=== PATIENT | female | born 1990 | race Caucasian/White ===

== ENCOUNTER 2019-10-15 00:45 | Emergency (ER) | payer MEDICAID ==
--- NOTE | 2019-10-15 00:43 | EDM.PDOC ---
ED HPI GENERAL MEDICAL PROBLEM - General Stated Complaint: AMBULANCE Time Seen by Provider: 10/15/19 00:43 Source of Information: Reports: Patient, EMS, EMS Notes Reviewed, RN, RN Notes Reviewed History Limitations: Reports: Intoxication - History of Present Illness INITIAL COMMENTS - FREE TEXT/NARRATIVE: Patient presents to ER [facility] ambulance service with complaint of chest pain. Patient states the pain began suddenly this evening, rates pain 8/10, points to the left anterior chest wall when asked where pain is. Patient states the pain radiates up the neck and into the jaw and into the left shoulder. Patient states she has been drinking quite a bit of alcohol, states she is an alcoholic and currently working on this. Denies any further drug use. Patient admits to history of anxiety, and bipolar with no known medications. Patient denies any cardiac history. Onset: Today, Sudden Anterior Chest Pain Score (Numeric/FACES): 6 - Related Data Allergies Allergy/AdvReac Type Severity Reaction Status Date / Time EGGS Allergy Cannot Uncoded 10/15/19 00:53 Remember Home Meds: Home Meds . [No Known Home Meds] 10/15/19 [History] ED ROS GENERAL - Review of Systems Review Of Systems: Comprehensive ROS is negative, except as noted in HPI. ED EXAM, GENERAL - Physical Exam Exam: See Below Exam Limited By: Intoxication General Appearance: Alert, WD/WN, Anxious, Moderate Distress Eye Exam: Right Eye: Other (swelling of upper and lower lids), Bilateral Eye: Conjunctival Injection, EOMI, PERRL (3 sluggish) Ears: Normal External Exam, Hearing Grossly Normal Nose: Normal Inspection Throat/Mouth: Normal Inspection, Normal Voice, No Airway Compromise Head: Atraumatic, Normocephalic Neck: Normal Inspection, Supple, Non-Tender, Full Range of Motion Respiratory/Chest: No Respiratory Distress, Lungs Clear, Normal Breath Sounds, No Accessory Muscle Use, Chest Non-Tender Cardiovascular: Normal Peripheral Pulses, Regular Rate, Rhythm, No Edema, No Gallop, No JVD, No Murmur, No Rub Peripheral Pulses: 2+: Radial (L), Radial (R) GI/Abdominal: Normal Bowel Sounds, Soft, Non-Tender, No Organomegaly, No Distention, No Abnormal Bruit, No Mass, Pelvis Stable (Female) Exam: Deferred Rectal (Female) Exam: Deferred Back Exam: Normal Inspection, Full Range of Motion, NT Extremities: Normal Inspection, Normal Range of Motion, Non-Tender, Normal Capillary Refill, No Pedal Edema Neurological: Alert, Oriented, CN II-XII Intact, Normal Cognition, Normal Gait, Normal Reflexes, No Motor/Sensory Deficits Psychiatric: Anxious, Tearful Skin Exam: Warm, Dry, Intact, Normal Color, No Rash, Other (paint on hands and forearms bilaterally\\]) Lymphatic: No Adenopathy Course - Vital Signs Last Recorded V/S: Last Vital Signs Temp 98.9 F 10/15/19 00:45 Pulse 85 10/15/19 00:45 Resp 17 10/15/19 00:45 BP 116/82 10/15/19 00:45 Pulse Ox 100 10/15/19 00:45 - Orders/Labs/Meds Orders: Active Orders 24 hr Category Date Time Status EKG Documentation Completion [RC] STAT Care 10/15/19 00:43 Active EKG Documentation Completion [RC] STAT Care 10/15/19 04:55 Active CULTURE URINE [RM] Stat Lab 10/15/19 02:28 Received Acetaminophen [TylenoL] Med 10/15/19 05:54 Once 650 mg PO NOW ONE Labs: Laboratory Tests 10/15/19 10/15/19 10/15/19 Range/Units 00:55 00:55 02:28 WBC 11.5 H (5.0-10.0) 10^3/uL RBC 4.40 (4.2-5.4) 10^6/uL Hgb 13.7 (12.0-16.0) g/dL Hct 41.6 (37.0-47.0) % MCV 94.5 (80-100) fL MCH 31.1 (27.0-34.0) pg MCHC 32.9 L (33.0-35.0) g/dL Plt Count 331 (150-450) 10^3/uL Neut % (Auto) 57.9 (42.2-75.2) % Lymph % (Auto) 32.8 (20.5-50.1) % [place] % (Auto) 6.8 (2-8) % Eos % (Auto) 2.3 (1.0-3.0) % Baso % (Auto) 0.2 (0.0-1.0) % Sodium 145 (136-145) mmol/L Potassium 3.7 (3.5-5.1) mmol/L Chloride 109 H (98-107) mmol/L Carbon Dioxide 24 (21-32) mmol/L Anion Gap 15.7 H (7-13) mEq/L BUN 17 (7-18) mg/dL Creatinine 0.91 (0.55-1.02) mg/dL Est Cr Clr Drug Dosing 81.34 mL/min Estimated GFR (MDRD) > 60 BUN/Creatinine Ratio 18.7 (No establ ref range) Glucose 90 (74-99) mg/dL Calcium 8.1 L (8.5-10.1) mg/dL Total Bilirubin 0.2 (0.2-1.0) mg/dL AST 21 (15-37) U/L ALT 29 (14-59) U/L Alkaline Phosphatase 60 (46-116) U/L Troponin I < 0.017 (0.000-0.056) ng/mL Total Protein 7.1 (6.4-8.2) g/dL Albumin 3.9 (3.4-5.0) g/dL Globulin 3.2 Albumin/Globulin Ratio 1.2 Urine Color Yellow (YELLOW) Urine Appearance Slightly cloudy (CLEAR) Urine pH 5.5 (5.0-9.0) Ur Specific [place] >= 1.030 (1.005-1.030) Urine Protein Negative (NEGATIVE) Urine Glucose (UA) Negative (NEGATIVE) Urine Ketones Negative (NEGATIVE) Urine Occult Blood Trace-lysed H (NEGATIVE) Urine Nitrite Negative (NEGATIVE) Urine Bilirubin Negative (NEGATIVE) Urine Urobilinogen 0.2 (0.2-1.0) mg/dL Ur Leukocyte Esterase Trace H (NEGATIVE) Urine RBC 0-5 /HPF Urine WBC 10-20 H (0-5/HPF) /HPF Ur Epithelial Cells Moderate H (NOT SEEN) /HPF Amorphous Sediment Few (NOT SEEN) /HPF Urine Bacteria Few (0-FEW/HPF) /HPF Urine Mucus Rare (NOT SEEN) /LPF Urine HCG, Qual Urine Opiates Screen (NEGATIVE) Ur Oxycodone Screen (NEGATIVE) Urine Methadone Screen (NEGATIVE) Ur Barbiturates Screen (NEGATIVE) U Tricyclic Antidepress (NEGATIVE) Ur Phencyclidine Scrn (NEGATIVE) Ur Amphetamine Screen (NEGATIVE) U Methamphetamines Scrn (NEGATIVE) Urine MDMA Screen (NEGATIVE) U Benzodiazepines Scrn (NEGATIVE) Urine Cocaine Screen (NEGATIVE) U Marijuana (THC) Screen (NEGATIVE) Ethyl Alcohol 197 (0) mg/dL 10/15/19 10/15/19 10/15/19 Range/Units 02:28 02:28 05:12 WBC (5.0-10.0) 10^3/uL RBC (4.2-5.4) 10^6/uL Hgb (12.0-16.0) g/dL Hct (37.0-47.0) % MCV (80-100) fL MCH (27.0-34.0) pg MCHC (33.0-35.0) g/dL Plt Count (150-450) 10^3/uL Neut % (Auto) (42.2-75.2) % Lymph % (Auto) (20.5-50.1) % [place] % (Auto) (2-8) % Eos % (Auto) (1.0-3.0) % Baso % (Auto) (0.0-1.0) % Sodium (136-145) mmol/L Potassium (3.5-5.1) mmol/L Chloride (98-107) mmol/L Carbon Dioxide (21-32) mmol/L Anion Gap (7-13) mEq/L BUN (7-18) mg/dL Creatinine (0.55-1.02) mg/dL Est Cr Clr Drug Dosing mL/min Estimated GFR (MDRD) BUN/Creatinine Ratio (No establ ref range) Glucose (74-99) mg/dL Calcium (8.5-10.1) mg/dL Total Bilirubin (0.2-1.0) mg/dL AST (15-37) U/L ALT (14-59) U/L Alkaline Phosphatase (46-116) U/L Troponin I < 0.017 (0.000-0.056) ng/mL Total Protein (6.4-8.2) g/dL Albumin (3.4-5.0) g/dL Globulin Albumin/Globulin Ratio Urine Color (YELLOW) Urine Appearance (CLEAR) Urine pH (5.0-9.0) Ur Specific [place] (1.005-1.030) Urine Protein (NEGATIVE) Urine Glucose (UA) (NEGATIVE) Urine Ketones (NEGATIVE) Urine Occult Blood (NEGATIVE) Urine Nitrite (NEGATIVE) Urine Bilirubin (NEGATIVE) Urine Urobilinogen (0.2-1.0) mg/dL Ur Leukocyte Esterase (NEGATIVE) Urine RBC /HPF Urine WBC (0-5/HPF) /HPF Ur Epithelial Cells (NOT SEEN) /HPF Amorphous Sediment (NOT SEEN) /HPF Urine Bacteria (0-FEW/HPF) /HPF Urine Mucus (NOT SEEN) /LPF Urine HCG, Qual Negative Urine Opiates Screen Negative (NEGATIVE) Ur Oxycodone Screen Negative (NEGATIVE) Urine Methadone Screen Negative (NEGATIVE) Ur Barbiturates Screen Negative (NEGATIVE) U Tricyclic Antidepress Negative (NEGATIVE) Ur Phencyclidine Scrn Negative (NEGATIVE) Ur Amphetamine Screen Negative (NEGATIVE) U Methamphetamines Scrn Positive H (NEGATIVE) Urine MDMA Screen Negative (NEGATIVE) U Benzodiazepines Scrn Negative (NEGATIVE) Urine Cocaine Screen Negative (NEGATIVE) U Marijuana (THC) Screen Positive H (NEGATIVE) Ethyl Alcohol (0) mg/dL Meds: Medications Discontinued Medications Generic Name Dose Route Start Last Admin Trade Name Marika PRN Reason Stop Dose Admin Diphenhydramine HCl 25 mg 10/15/19 01:20 10/15/19 01:38 Benadryl IVPUSH 10/15/19 01:21 25 mg ONETIME ONE Administration Sodium Chloride 1,000 mls @ 999 mls/hr 10/15/19 00:45 10/15/19 01:12 Normal Saline IV 10/15/19 01:45 999 mls/hr .BOLUS ONE Administration Sodium Chloride 1,000 mls @ 500 mls/hr 10/15/19 02:30 10/15/19 02:30 Normal Saline IV 500 mls/hr ASDIRECTED ALEXY Administration Sodium Chloride 1,000 mls @ 999 mls/hr 10/15/19 02:30 Normal Saline IV 10/15/19 03:30 .BOLUS ONE - Radiology Interpretation Free Text/Narrative:: Chest xray: PROCEDURE INFORMATION: Exam: XR Chest, 1 View Exam date and time: 10/15/2019 1:10 AM Age: 29 years old Clinical indication: Chest pain TECHNIQUE: Imaging protocol: XR of the chest Views: 1 view. COMPARISON: No relevant prior studies available. FINDINGS: Lungs: Unremarkable. No consolidation. Pleural space: Unremarkable. No pleural effusion. No pneumothorax. Heart/Mediastinum: Unremarkable. No cardiomegaly. Bones/joints: Unremarkable. IMPRESSION: No acute findings. Thank you for allowing us to participate in the care of your patient. Dictated and Authenticated by: Jc Neal MD 10/15/2019 1:23 AM Central Time ([place] & [place]) See rad report - Re-Assessments/Exams Free Text/Narrative Re-Assessment/Exam: 10/15/19 02:33 Patient sleeping hard, snoring. When awoken states her pain in her chest is an 8/10. States "it does not like me". Patient states she the pain is improved but continues. Shortly after this statement patient is snoring sleeping again. Departure - Departure Time of Disposition: 05:54 Disposition: Home, Self-Care 01 Reason for Transfer *Q: Other Condition: Fair Clinical Impression: Anxiety, Alcohol abuse, Chest pain, musculoskeletal, Methamphetamine abuse Instructions: Chest Wall Pain, [id number], Nonspecific Chest Pain, Adult, [id number], Alcohol Use Disorder, Stimulant Use Disorder-Methamphetamines Forms: ED Department Discharge Additional Instructions: Refrain from drinking alcohol and using meth May use Tylenol and/or ibuprofen as directed for pain No heavy lifting or arms above the head for 1 to 2 weeks, until pain improves Follow-up with your primary care provider or return to the ER with any worsening of symptoms Sepsis Event Note (ED) - Focused Exam Vital Signs: Vital Signs Temp Pulse Resp BP Pulse Ox 10/15/19 00:45 98.9 F 85 17 116/82 100 - My Orders Last 24 Hours: My Active Orders 10/15/19 00:43 EKG Documentation Completion [RC] STAT 10/15/19 02:28 CULTURE URINE [RM] Stat 10/15/19 04:55 EKG Documentation Completion [RC] STAT 10/15/19 05:54 Acetaminophen [TylenoL] 650 mg PO NOW ONE - Assessment/Plan Last 24 Hours: My Active Orders 10/15/19 00:43 EKG Documentation Completion [RC] STAT 10/15/19 02:28 CULTURE URINE [RM] Stat 10/15/19 04:55 EKG Documentation Completion [RC] STAT 10/15/19 05:54 Acetaminophen [TylenoL] 650 mg PO NOW ONE
[~2019-10-15 00:45] MED LIST: Sodium Chloride 0.9% 1,000 ML IV ONE
[2019-10-15] MEDS ORDERED: diphenhydrAMINE 50 MG/ML SDV IVPUSH ONE (01:20)
--- NOTE | 2019-10-15 01:23 | CR ---
PROCEDURE INFORMATION: Exam: XR Chest, 1 View Exam date and time: 10/15/2019 1:10 AM Age: 29 years old Clinical indication: Chest pain TECHNIQUE: Imaging protocol: XR of the chest Views: 1 view. COMPARISON: No relevant prior studies available. FINDINGS: Lungs: Unremarkable. No consolidation. Pleural space: Unremarkable. No pleural effusion. No pneumothorax. Heart/Mediastinum: Unremarkable. No cardiomegaly. Bones/joints: Unremarkable. IMPRESSION: No acute findings.
[2019-10-15 01:37] LABS: ANION GAP 15.7 mEq/L (7-13); CHLORIDE,CL 109 mmol/L (98-107); SODIUM,NA 145 mmol/L (136-145)
[2019-10-15] MEDS ORDERED: Sodium Chloride 0.9% 1,000 ML IV SCH (02:30)
[2019-10-15] MEDS ORDERED: Sodium Chloride 0.9% 1,000 ML IV ONE (02:30)
[2019-10-15] MEDS ORDERED: Acetaminophen 325 MG Tab PO ONE (05:54)
== END 2019-10-15 06:03 | disposition home or self-care (01) ==
LOC: DL.ED 00:45
DX: F41.9 Anxiety disorder, unspecified (principal); F10.129 Alcohol abuse with intoxication, unspecified; F15.10 Other stimulant abuse, uncomplicated; Z91.012 Allergy to eggs; Y90.6 Blood alcohol level of 120-199 mg/100 ml
CPT/HCPCS: 36415; 71045; 80053; 80305; 80307; 81001; 81025; 84484; 85025; 87086; 93005; 96374; 99285; A9270; J1200; J7030; 93010; 99283

== ENCOUNTER 2021-06-19 14:00 | Emergency (ER) | payer MEDICAID ==
[2021-06-19] MEDS ORDERED: Acetaminophen/HYDROcodone 325-10 MG Tab PO ONE (14:01)
[2021-06-19] MEDS ORDERED: Lidocaine 1% 30 ML SDV NERVRT ONE (14:49)
[2021-06-19] MEDS ORDERED: Acetaminophen/HYDROcodone 325-10 MG Tab ONE (15:16)
== END 2021-06-19 15:30 | disposition home or self-care (01) ==
LOC: DL.ED 14:00
DX: S62.336A Displaced fracture of neck of fifth metacarpal bone, right hand, initial encounter for closed fracture (principal); Z91.012 Allergy to eggs; Z90.49 Acquired absence of other specified parts of digestive tract; Z72.0 Tobacco use; W20.8XXA Other cause of strike by thrown, projected or falling object, initial encounter
CPT/HCPCS: 26605; 73120; 73130; 81025; 99283; A9270; 26770; 29125; 99284

== ENCOUNTER 2021-06-27 13:34 | Emergency (ER) | payer MEDICAID ==
[2021-06-27] MEDS ORDERED: Tetracaine HCl/PF 0.5% 4 ML Bottle ONE (13:45)
== END 2021-06-27 13:57 | disposition home or self-care (01) ==
LOC: DL.ED 13:34
DX: H69.82 Other specified disorders of Eustachian tube, left ear (principal); B34.9 Viral infection, unspecified; Z91.012 Allergy to eggs
CPT/HCPCS: 99282

== ENCOUNTER 2022-01-31 00:35 | Emergency (ER) | payer MEDICAID | END 2022-01-31 01:13 | disposition home or self-care (01) | LOC: DL.ED 00:35 | DX: L03.113 Cellulitis of right upper limb (principal); L03.115 Cellulitis of right lower limb; J45.909 Unspecified asthma, uncomplicated; Z91.012 Allergy to eggs | CPT/HCPCS: 99283 ==